=== PATIENT | female | born 1965 | race Caucasian/White ===

== ENCOUNTER 2021-04-08 09:26 | Emergency (ER) | payer OTHER ==
[~2021-04-08] VITALS: Ht 157.5 cm; Wt 38.6 kg
[2021-04-08 09:59] VITALS: BP 97/68
== END 2021-04-08 12:18 | disposition home or self-care (01) ==
LOC: EMS 09:26
DX: R45.851 Suicidal ideations (principal); R45.1 Restlessness and agitation; F17.210 Nicotine dependence, cigarettes, uncomplicated
CPT/HCPCS: 99285; Z7502